=== PATIENT | female | born 1955 | race Two or more races ===

== ENCOUNTER 2024-01-31 00:11 | Emergency (ER) | payer BC ==
[~2024-01-31] VITALS: Ht 165.1 cm; Wt 74.8 kg
[2024-01-31] MEDS ORDERED: ATENOLOL100 MG PO (00:25)
[2024-01-31] MEDS ORDERED: ZESTRIL10 M1 PO (00:25)
[2024-01-31] MEDS ORDERED: IBUprofen 400 MG TABLET PO STA (02:11)
[2024-01-31] MEDS ORDERED: CLINDAMYCIN PHOSPHATE 150 MG/ML (600mg) IM STA (02:11)
== END 2024-01-31 02:35 | disposition home or self-care (01) ==
LOC: ER 00:12
DX: L03.031 Cellulitis of right toe (principal); Z88.0 Allergy status to penicillin